=== PATIENT | male | born 1995 | race Caucasian/White ===

== ENCOUNTER 2016-10-07 08:44 | Emergency (ER) | payer OTHER ==
--- NOTE | 2016-10-07 09:26 | ED CLINICAL REPORT ---
Clinical Report - Physicians/Mid Levels [facility] [address] [place] [address] 10/07/2016 8:44 Patient: RANDY KEARNS Time Seen: 09:04; initial patient contact. Arrived- By private vehicle. Historian- patient. HISTORY OF PRESENT ILLNESS Chief Complaint: SKIN RASH. This started about 1 month ago and is still present (persistent). It is described as itchy. Not painful or burning. It has been generalized in location. No cause has been identified. No recent medication or insect bite. Similar symptoms previously: None. Recent medical care: Not recently seen/assessed. REVIEW OF SYSTEMS No fever, chills or enlarged lymph nodes. All systems otherwise negative, except as recorded above. PAST HISTORY PROBLEMS: Contusion. Laceration. Substance Abuse. Suicidal Ideation. Immunizations. SURGERIES: no known surgeries. SOCIAL HISTORY Current every day smoker. History of drug use: marijuana. No alcohol use. ADDITIONAL NOTES The nursing notes have been reviewed with agreement regarding the chief complaint, PMH and patient medications and allergies. PHYSICAL EXAM Vital Signs: 10/07/2016 09:00 BP: 161/100. HR: 86. RR: 14. O2 saturation: 100%. Temp: 98.1 F. Pain level now: 0/10. Have been reviewed. Hypertensive. Heart rate normal. Respiratory rate normal. Temperature normal. Oxygen saturation normal. Appearance: Alert. Oriented X3. No acute distress. Eyes: Conjunctivae and eyelids normal. CVS: Normal heart rate and rhythm. Heart sounds normal. Respiratory: No respiratory distress. Breath sounds normal. Skin: Rash present on the trunk. Rash present on the right forearm and hand and left forearm and hand. The rash is maculopapular. No warmth, induration, weeping, tenderness or swelling. Neuro: Oriented X 3. PROGRESS AND PROCEDURES Disposition: Discharged home in good condition. Condition: good. CLINICAL IMPRESSION Scabies Essential hypertension. INSTRUCTIONS Prescription Medications: Elimite 5% Cream: Shower and dry thoroughly, then apply cream to whole body from neck down, leave on 8 hours then shower thoroughly and launder clothes and bedclothes in hot water. Repeat in 1 week if needed. Dispense one (1) tube. One refill. Substitution is permissible. Follow-up: Screening today revealed the patient's blood pressure to be in the hypertensive range. The patient should follow up with a primary care provider for blood pressure management. Follow-up with: [facility], , , [address], , [place], [id number] Follow up in about three days. Call for an appointment. (Electronically signed by Jarad Chamorro Dr. 10/07/2016 21:35)
--- NOTE | 2016-10-07 09:26 | ED NURSING NOTES ---
Clinical Report - Nurses [facility] [place] [address] [place] [address] 10/07/2016 8:44 Patient: RANDY KEARNS TRIAGE Triage time 09:00. Acuity: LEVEL 5. Chief Complaint: (LEFT ARM PAIN). 09:01 10/07/16. 09:00 10/07/16. --09:02 John Griffiths R.N. 09:00 10/07/16. BP: 161/100. HR: 86. RR: 14. O2 saturation: 100% on room air. Temp: 98.1 F (oral). Pain level now: 0/10. --09:02 John Griffiths R.N. <<STRICKEN ENTRY-- ( Pt had a tatoo placed 2 weeks ago from a friend, now pt c/o left arm pain and redness). --09:03 John Griffiths R.N. --END STRIKE>> Correction --09:03 John Griffiths R.N. ( Pt had a tattoo placed 2 weeks ago from a friend, now pt c/o left arm pain and redness). --09:03 John Griffiths R.N. Weight: 77.1 kg stated. Height/Length: 70 inches Per Patient. BMI: 24.4. --09:00 John Griffiths R.N. Medications None. --09:01 John Griffiths R.N. Medication/allergy information source: the patient. --09:02 John Griffiths R.N. Allergies No Known Drug Allergy. --09:01 John Griffiths R.N. History Arrived by private vehicle. Historian: patient. Primary physician (NONE). 09:01 10/07/16. 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 PAST MEDICAL HX: Immunizations not up to date. SOCIAL HX: Current every day light tobacco smoker (cigarette)- less than 1/2 a pack per day. History of heavy drug use: marijuana. Recently used drugs yesterday. No alcohol use. No infectious disease exposure. ABUSE ASSESSMENT: No report of abuse. FALL RISK ASSESSMENT: Fall risk assessment completed. No fall risk identified. NUTRITIONAL RISK ASSESSMENT: The nutritional risk assessment revealed no deficiencies. FUNCTIONAL ASSESSMENT: Functional assessment: no impairments noted. LEARNING NEEDS ASSESSMENT: The learning needs assessment revealed no barriers. SKIN INTEGRITY ASSESSMENT: Skin integrity risk assessment completed. No skin integrity risk identified. --09:02 John Griffiths R.N. PROBLEMS: Contusion. Laceration. Substance Abuse. Suicidal Ideation. Immunizations. --09:02 John Griffiths R.N. ADDITIONAL SURGERIES: no known surgeries. Assessment 09:01 10/07/16. --09:02 John Griffiths R.N. Interventions 09:10/07/16. 09:10/07/16. ID and allergy band on patient. To treatment room. --09:02 John Griffiths R.N. PHYSICAL ASSESSMENT 09:04 10/07/16. GENERAL / NEURO / PSYCH: Alert. Oriented X 4. Appears in no acute distress. RESPIRATORY: Respirations not labored. SKIN: Skin is warm and dry. Crusting skin rash located on the left arm. --09:05 John Griffiths R.N. NURSING PROGRESS NOTES 09:03 10/07/16. The plan of care for this patient has been created. Head of bed elevated. Two patient identifiers checked. Call light placed in reach. Side rails up x 2. Bed placed in lowest position. Brakes of bed on. Brakes of chair on. --09:03 John Griffiths R.N. 09:04 10/07/16. Patient ready for evaluation- chart flagged and notification provided. --09:04 John Griffiths R.N. DISPOSITION / DISCHARGE 09:42 10/07/16. Condition at departure: improved. The goals identified in the patient's plan of care were met. No learning barriers present. Discharge instructions provided and reviewed with the patient. Reviewed warnings. Reviewed medication(s). Treatments reviewed. Patient verbalized understanding. Written instructions provided in [place]. The patient was discharged by the physician. He was discharged home. He left the Emergency Department ambulatory and via private vehicle. FALL RISK ASSESSMENT: Fall risk assessment completed. No fall risk identified. --09:42 John Griffiths R.N. 09:42 10/07/16. BP: 150/92. HR: 80. RR: 12. O2 saturation: 100% on room air. --09:42 John Griffiths R.N. 09:42 10/07/16. Departure time: 09:42. --09:42 John Griffiths R.N. Locked/Released at 10/07/2016 11:19 by John Griffiths R.N.
--- NOTE | 2016-10-07 09:26 | ED NURSING NOTES ---
Clinical Report - Nurses [facility] [place] [address] [place] [address] 10/07/2016 8:44 Patient: RANDY KEARNS TRIAGE Triage time 09:00. Acuity: LEVEL 5. Chief Complaint: (LEFT ARM PAIN). 09:01 10/07/16. 09:00 10/07/16. --09:02 John Griffiths R.N. 09:00 10/07/16. BP: 161/100. HR: 86. RR: 14. O2 saturation: 100% on room air. Temp: 98.1 F (oral). Pain level now: 0/10. --09:02 John Griffiths R.N. <<STRICKEN ENTRY-- ( Pt had a tatoo placed 2 weeks ago from a friend, now pt c/o left arm pain and redness). --09:03 John Griffiths R.N. --END STRIKE>> Correction --09:03 John Griffiths R.N. ( Pt had a tattoo placed 2 weeks ago from a friend, now pt c/o left arm pain and redness). --09:03 John Griffiths R.N. Weight: 77.1 kg stated. Height/Length: 70 inches Per Patient. BMI: 24.4. --09:00 John Griffiths R.N. Medications None. --09:01 John Griffiths R.N. Medication/allergy information source: the patient. --09:02 John Griffiths R.N. Allergies No Known Drug Allergy. --09:01 John Griffiths R.N. History Arrived by private vehicle. Historian: patient. Primary physician (NONE). 09:01 10/07/16. 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 PAST MEDICAL HX: Immunizations not up to date. SOCIAL HX: Current every day light tobacco smoker (cigarette)- less than 1/2 a pack per day. History of heavy drug use: marijuana. Recently used drugs yesterday. No alcohol use. No infectious disease exposure. ABUSE ASSESSMENT: No report of abuse. FALL RISK ASSESSMENT: Fall risk assessment completed. No fall risk identified. NUTRITIONAL RISK ASSESSMENT: The nutritional risk assessment revealed no deficiencies. FUNCTIONAL ASSESSMENT: Functional assessment: no impairments noted. LEARNING NEEDS ASSESSMENT: The learning needs assessment revealed no barriers. SKIN INTEGRITY ASSESSMENT: Skin integrity risk assessment completed. No skin integrity risk identified. --09:02 John Griffiths R.N. PROBLEMS: Contusion. Laceration. Substance Abuse. Suicidal Ideation. Immunizations. --09:02 John Griffiths R.N. ADDITIONAL SURGERIES: no known surgeries. Assessment 09:01 10/07/16. --09:02 John Griffiths R.N. Interventions 09:10/07/16. 09:10/07/16. ID and allergy band on patient. To treatment room. --09:02 John Griffiths R.N. PHYSICAL ASSESSMENT 09:04 10/07/16. GENERAL / NEURO / PSYCH: Alert. Oriented X 4. Appears in no acute distress. RESPIRATORY: Respirations not labored. SKIN: Skin is warm and dry. Crusting skin rash located on the left arm. --09:05 John Griffiths R.N. NURSING PROGRESS NOTES 09:03 10/07/16. The plan of care for this patient has been created. Head of bed elevated. Two patient identifiers checked. Call light placed in reach. Side rails up x 2. Bed placed in lowest position. Brakes of bed on. Brakes of chair on. --09:03 John Griffiths R.N. 09:04 10/07/16. Patient ready for evaluation- chart flagged and notification provided. --09:04 John Griffiths R.N. DISPOSITION / DISCHARGE 09:42 10/07/16. Condition at departure: improved. The goals identified in the patient's plan of care were met. No learning barriers present. Discharge instructions provided and reviewed with the patient. Reviewed warnings. Reviewed medication(s). Treatments reviewed. Patient verbalized understanding. Written instructions provided in [place]. The patient was discharged by the physician. He was discharged home. He left the Emergency Department ambulatory and via private vehicle. FALL RISK ASSESSMENT: Fall risk assessment completed. No fall risk identified. --09:42 John Griffiths R.N. 09:42 10/07/16. BP: 150/92. HR: 80. RR: 12. O2 saturation: 100% on room air. --09:42 John Griffiths R.N. 09:42 10/07/16. Departure time: 09:42. --09:42 John Griffiths R.N. Locked/Released at 10/07/2016 11:19 by John Griffiths R.N.
--- NOTE | 2016-10-07 09:26 | ED CLINICAL REPORT ---
Clinical Report - Physicians/Mid Levels [facility] [address] [place] [address] 10/07/2016 8:44 Patient: RANDY KEARNS Time Seen: 09:04; initial patient contact. Arrived- By private vehicle. Historian- patient. HISTORY OF PRESENT ILLNESS Chief Complaint: SKIN RASH. This started about 1 month ago and is still present (persistent). It is described as itchy. Not painful or burning. It has been generalized in location. No cause has been identified. No recent medication or insect bite. Similar symptoms previously: None. Recent medical care: Not recently seen/assessed. REVIEW OF SYSTEMS No fever, chills or enlarged lymph nodes. All systems otherwise negative, except as recorded above. PAST HISTORY PROBLEMS: Contusion. Laceration. Substance Abuse. Suicidal Ideation. Immunizations. SURGERIES: no known surgeries. SOCIAL HISTORY Current every day smoker. History of drug use: marijuana. No alcohol use. ADDITIONAL NOTES The nursing notes have been reviewed with agreement regarding the chief complaint, PMH and patient medications and allergies. PHYSICAL EXAM Vital Signs: 10/07/2016 09:00 BP: 161/100. HR: 86. RR: 14. O2 saturation: 100%. Temp: 98.1 F. Pain level now: 0/10. Have been reviewed. Hypertensive. Heart rate normal. Respiratory rate normal. Temperature normal. Oxygen saturation normal. Appearance: Alert. Oriented X3. No acute distress. Eyes: Conjunctivae and eyelids normal. CVS: Normal heart rate and rhythm. Heart sounds normal. Respiratory: No respiratory distress. Breath sounds normal. Skin: Rash present on the trunk. Rash present on the right forearm and hand and left forearm and hand. The rash is maculopapular. No warmth, induration, weeping, tenderness or swelling. Neuro: Oriented X 3. PROGRESS AND PROCEDURES Disposition: Discharged home in good condition. Condition: good. CLINICAL IMPRESSION Scabies Essential hypertension. INSTRUCTIONS Prescription Medications: Elimite 5% Cream: Shower and dry thoroughly, then apply cream to whole body from neck down, leave on 8 hours then shower thoroughly and launder clothes and bedclothes in hot water. Repeat in 1 week if needed. Dispense one (1) tube. One refill. Substitution is permissible. Follow-up: Screening today revealed the patient's blood pressure to be in the hypertensive range. The patient should follow up with a primary care provider for blood pressure management. Follow-up with: [facility], , , [address], , [place], [address] Follow up in about three days. Call for an appointment. (Electronically signed by Jarad Chamorro Dr. 10/07/2016 21:35)
--- NOTE | 2016-10-07 21:36 | ED MED RECONCILIATION SUMMARY ---
Patient: RANDY KEARNS Medication Reconciliation Report [facility] VisitID: [id number] [address] [place] [address] 21y, M Registration Date/Time: 10/07/2016 Weight: 77.1 kg Height/Length: 70 in. BMI: 24.4 ALLERGIES: No Known Drug Allergy The patient's Home Medications are listed below: NONE. The source(s) of the original Home Medication information: patient The following Medications were given to the patient in the Emergency Department: None. The following Medications were prescribed to the patient: Elimite 5% Cream: Shower and dry thoroughly, then apply cream to whole body from neck down, leave on 8 hours then shower thoroughly and launder clothes and bedclothes in hot water. Repeat in 1 week if needed. Dispense one (1) tube. One refill. Substitution is permissible. -- Jarad Chamorro Dr.
--- NOTE | 2016-10-07 21:36 | ED DISCHARGE INSTRUCTIONS ---
Patient: RANDY KEARNS General Instructions [facility] VisitID: [id number] [address] [place] [address] 21y, M Registration Date/Time: 10/07/2016 Scabies Essential hypertension. INSTRUCTIONS Prescription Medications: Elimite 5% Cream: Shower and dry thoroughly, then apply cream to whole body from neck down, leave on 8 hours then shower thoroughly and launder clothes and bedclothes in hot water. Repeat in 1 week if needed. Dispense one (1) tube. One refill. Substitution is permissible. Follow-up: Screening today revealed the patient's blood pressure to be in the hypertensive range. The patient should follow up with a primary care provider for blood pressure management. Follow-up with: [facility], , , [address], , [place], [address] Follow up in about three days. Call for an appointment. ADDITIONAL INFORMATION Scabies Scabies is a skin disease caused by a tiny insect that can only be seen with a microscope. Scabies usha under the skin and cause an itchy bumpy rash on the hands, feet, armpits, buttocks and groin area. Preventing Spread To Others: Scabies is highly contagious. It is easily spread by close personal contact or by sharing bed linens or clothing used by an infected person. It may take 4-6 weeks for symptoms to appear after being exposed. Everyone living in the house with an infected person, as well as sexual partners of an infected person, should be treated at the same time. After the first treatment, you will no longer be contagious and you may return to work, school or daycare. Home Care: Clothing Care Machine wash in hot water all sheets, towels, pillowcases, underwear, pajamas and any other clothing recently worn. Use the hot cycle of a dryer or use a hot iron to sterilize. Items that are difficult to wash such as coats, jackets, blankets and spreads can be sealed in a plastic trash bag for four days. (The insects after three days off the human body.) Using Medicine Use the medicine (Kwell or Elimite) exactly as prescribed. Apply it at bedtime from the chin down to your toes, covering all of your skin. Do this even in areas that don't seem infected! Avoid getting the medicine in your eyes and the sensitive areas around the vagina and tip of the penis. If it gets in a sensitive area, rinse with lots of water. Wash off the medicine 8-14 hours later. Do not leave it on the skin longer than directed and do not use it more often than directed. Otherwise, side effects may occur. A single treatment will kill the mites in the skin right away, but it may take 2-4 weeks for all of the itching and rash to go away. Itching may increase slightly right after the treatment, but you should be better by the end of the first week. Women should tell their doctor if they are nursing or think they may be before using this medicine. Itching Oral Benadryl (diphenhydramine) is an antihistamine available at drug and grocery stores. Unless a prescription antihistamine was given, Benadryl may be used to reduce itching if large areas of the skin are involved. Use lower doses during the daytime and higher doses at bedtime since the drug may make you sleepy. [NOTE: Do not use Benadryl if you have glaucoma or if you are a man with trouble urinating due to an enlarged prostate.] Claritin (loratidine) is an antihistamine that causes less drowsiness and is a good alternative for daytime use. For severe itch attacks, apply an ice pack (ice cubes in a plastic bag, wrapped in a towel) or use Lanacaine, Lanacort or Solarcaine (or other medicines containing benzocaine, sold without a prescription). Follow Up with your doctor or as directed if your symptoms do not improve after 1 week. Get Prompt Medical Attention if any of the following occur: Increasing redness of the skin Yellow-brown crusts or drainage from the sores Fever of 100.4F (38C) or higher, or as directed by your healthcare provider High Blood Pressure -- To Be Confirmed [No Tx] Your blood pressure was higher today than normal. Sometimes anxiety or pain can cause a temporary rise in blood pressure that later returns to normal. If your blood pressure is high on one measurement, this does not mean that you have hypertension (a chronic illness). However, you must have your blood pressure measured again within the next few days to find out if its still high. A normal blood pressure is 120/80 or less. The first (top) number is the "systolic" pressure. The second (bottom) number is the "diastolic" pressure. Hypertension exists when either the top number is 140 or higher, OR the bottom number is 90 or higher on repeated measurements. Blood pressure in the range of 120-140 (systolic) or 80-89 (diastolic) is considered "pre-hypertension". This means your are at risk for getting hypertension. You should have regular blood pressure checks to be sure your blood pressure is not rising. Home Care: Measure your blood pressure on 3 different days and write down the results. This can be done at your doctor's office or this facility. Some pharmacies and grocery stores offer automated blood pressure machines for your use. Follow Up: If your blood pressure is "high" (over 120/80) on 2 out of 3 days, you will need to follow up with your doctor for further evaluation and treatment. DO NOT PUT THIS OFF! Untreated high blood pressure increases the risk for heart attack, also known as acute myocardial infarction, or AMI, and stroke. It is a treatable condition. Get Prompt Medical Attention if any of the following occur: Chest pain or shortness of breath Severe headache Throbbing or rushing sound in the ears Nosebleed Sudden severe abdominal pain Extreme drowsiness, confusion or fainting Dizziness or vertigo (dizziness with spinning sensation) Weakness of an arm or leg or one side of the face Difficulty with speech or vision Permethrin Topical cream What is this medicine? PERMETHRIN (per METH rin) skin cream is used to treat scabies. How should I use this medicine? This medicine is for external use only. Do not take by mouth. Follow the directions on the prescription label. A bath or shower is NOT recommended before applying this medicine. Thoroughly rub the cream into all skin surfaces, from your head to the soles of your feet. It is important to apply it everywhere on your body, not just where the rash is. Apply the cream between fingers and toe creases, in the folds of the wrist and waistline, in the cleft of the buttocks, on the genitals, and in the belly button. Use a toothpick to apply the cream beneath your fingernails and toenails. Nails should be cut short. If you have little or no hair, or you are applying the cream to an or young child, make sure you rub the cream into the neck, scalp, hairline, temples, and forehead. Leave it on for 8 to 14 hours, then remove it by bathing and shampooing. If you are applying this medicine to another person, wear plastic or disposable gloves to protect yourself from infestation. Do not get this medicine in your eyes. If you do, rinse out with plenty of cool tap water. Talk to your helper coordinator regarding the use of this medicine in children. While this drug may be prescribed for children as young as 2 months of age for selected conditions, precautions do apply. What side effects may I notice from receiving this medicine? Side effects that usually do not require medical attention (report to your doctor or health animal caregiver if they continue or are bothersome): itching numbness rash redness or mild swelling of the skin stinging or burning tingling sensation What may interact with this medicine? Interactions are not expected. Do not use any other skin products on the affected area without telling your doctor or health animal caregiver. What if I miss a dose? This does not apply. Where should I keep my medicine? Keep out of the reach of children. Store at room temperature away from heat and direct light. Do not refrigerate or freeze. Throw away any unused medicine after the expiration date. What should I tell my health care provider before I take this medicine? They need to know if you have any of these conditions: asthma an unusual or allergic reaction to permethrin, veterinary or household insecticides, other medicines, chrysanthemums, foods, dyes, or preservatives or trying to get breast-feeding What should I watch for while using this medicine? It is not unusual for itching and rash to continue for as long as 2 to 4 weeks after treatment. These symptoms may be a temporary reaction to the remains of the mites. This does not mean this cream did not work or that it needs to be reapplied. If you feel that the itching and rash is intense or if it continues beyond 4 weeks, talk to your doctor or health animal caregiver right away. Scabies is spread by direct skin contact with an infected person. Family members and sexual partners may require treatment with this medicine. You should discuss this with your doctor or health animal caregiver. Using a normal washing cycle, you should wash all clothing, towels and bed linen that has touched your skin. You do not need to rewash clean clothing that has not yet been worn. [place], furniture, rugs, floors, and cordero do not need to be cleaned in any special manner. You have been given the following additional information: Scabies Hypertension, To Be Confirmed Permethrin Topical cream (Electronically signed by Jarad Chamorro Dr. 10/07/2016 21:35)
--- NOTE | 2016-10-07 21:36 | ED MED RECONCILIATION SUMMARY ---
Patient: RANDY KEARNS Medication Reconciliation Report [facility] VisitID: [id number] [address] [place] [address] 21y, M Registration Date/Time: 10/07/2016 Weight: 77.1 kg Height/Length: 70 in. BMI: 24.4 ALLERGIES: No Known Drug Allergy The patient's Home Medications are listed below: NONE. The source(s) of the original Home Medication information: patient The following Medications were given to the patient in the Emergency Department: None. The following Medications were prescribed to the patient: Elimite 5% Cream: Shower and dry thoroughly, then apply cream to whole body from neck down, leave on 8 hours then shower thoroughly and launder clothes and bedclothes in hot water. Repeat in 1 week if needed. Dispense one (1) tube. One refill. Substitution is permissible. -- Jarad Chamorro Dr.
--- NOTE | 2016-10-07 21:36 | ED DISCHARGE INSTRUCTIONS ---
Patient: RANDY KEARNS General Instructions [facility] VisitID: [id number] [address] [place] [address] 21y, M Registration Date/Time: 10/07/2016 Scabies Essential hypertension. INSTRUCTIONS Prescription Medications: Elimite 5% Cream: Shower and dry thoroughly, then apply cream to whole body from neck down, leave on 8 hours then shower thoroughly and launder clothes and bedclothes in hot water. Repeat in 1 week if needed. Dispense one (1) tube. One refill. Substitution is permissible. Follow-up: Screening today revealed the patient's blood pressure to be in the hypertensive range. The patient should follow up with a primary care provider for blood pressure management. Follow-up with: [facility], , , [address], , [place], [id number] Follow up in about three days. Call for an appointment. ADDITIONAL INFORMATION Scabies Scabies is a skin disease caused by a tiny insect that can only be seen with a microscope. Scabies usha under the skin and cause an itchy bumpy rash on the hands, feet, armpits, buttocks and groin area. Preventing Spread To Others: Scabies is highly contagious. It is easily spread by close personal contact or by sharing bed linens or clothing used by an infected person. It may take 4-6 weeks for symptoms to appear after being exposed. Everyone living in the house with an infected person, as well as sexual partners of an infected person, should be treated at the same time. After the first treatment, you will no longer be contagious and you may return to work, school or daycare. Home Care: Clothing Care Machine wash in hot water all sheets, towels, pillowcases, underwear, pajamas and any other clothing recently worn. Use the hot cycle of a dryer or use a hot iron to sterilize. Items that are difficult to wash such as coats, jackets, blankets and spreads can be sealed in a plastic trash bag for four days. (The insects after three days off the human body.) Using Medicine Use the medicine (Kwell or Elimite) exactly as prescribed. Apply it at bedtime from the chin down to your toes, covering all of your skin. Do this even in areas that don't seem infected! Avoid getting the medicine in your eyes and the sensitive areas around the vagina and tip of the penis. If it gets in a sensitive area, rinse with lots of water. Wash off the medicine 8-14 hours later. Do not leave it on the skin longer than directed and do not use it more often than directed. Otherwise, side effects may occur. A single treatment will kill the mites in the skin right away, but it may take 2-4 weeks for all of the itching and rash to go away. Itching may increase slightly right after the treatment, but you should be better by the end of the first week. Women should tell their doctor if they are nursing or think they may be before using this medicine. Itching Oral Benadryl (diphenhydramine) is an antihistamine available at drug and grocery stores. Unless a prescription antihistamine was given, Benadryl may be used to reduce itching if large areas of the skin are involved. Use lower doses during the daytime and higher doses at bedtime since the drug may make you sleepy. [NOTE: Do not use Benadryl if you have glaucoma or if you are a man with trouble urinating due to an enlarged prostate.] Claritin (loratidine) is an antihistamine that causes less drowsiness and is a good alternative for daytime use. For severe itch attacks, apply an ice pack (ice cubes in a plastic bag, wrapped in a towel) or use Lanacaine, Lanacort or Solarcaine (or other medicines containing benzocaine, sold without a prescription). Follow Up with your doctor or as directed if your symptoms do not improve after 1 week. Get Prompt Medical Attention if any of the following occur: Increasing redness of the skin Yellow-brown crusts or drainage from the sores Fever of 100.4F (38C) or higher, or as directed by your healthcare provider High Blood Pressure -- To Be Confirmed [No Tx] Your blood pressure was higher today than normal. Sometimes anxiety or pain can cause a temporary rise in blood pressure that later returns to normal. If your blood pressure is high on one measurement, this does not mean that you have hypertension (a chronic illness). However, you must have your blood pressure measured again within the next few days to find out if its still high. A normal blood pressure is 120/80 or less. The first (top) number is the "systolic" pressure. The second (bottom) number is the "diastolic" pressure. Hypertension exists when either the top number is 140 or higher, OR the bottom number is 90 or higher on repeated measurements. Blood pressure in the range of 120-140 (systolic) or 80-89 (diastolic) is considered "pre-hypertension". This means your are at risk for getting hypertension. You should have regular blood pressure checks to be sure your blood pressure is not rising. Home Care: Measure your blood pressure on 3 different days and write down the results. This can be done at your doctor's office or this facility. Some pharmacies and grocery stores offer automated blood pressure machines for your use. Follow Up: If your blood pressure is "high" (over 120/80) on 2 out of 3 days, you will need to follow up with your doctor for further evaluation and treatment. DO NOT PUT THIS OFF! Untreated high blood pressure increases the risk for heart attack, also known as acute myocardial infarction, or AMI, and stroke. It is a treatable condition. Get Prompt Medical Attention if any of the following occur: Chest pain or shortness of breath Severe headache Throbbing or rushing sound in the ears Nosebleed Sudden severe abdominal pain Extreme drowsiness, confusion or fainting Dizziness or vertigo (dizziness with spinning sensation) Weakness of an arm or leg or one side of the face Difficulty with speech or vision Permethrin Topical cream What is this medicine? PERMETHRIN (per METH rin) skin cream is used to treat scabies. How should I use this medicine? This medicine is for external use only. Do not take by mouth. Follow the directions on the prescription label. A bath or shower is NOT recommended before applying this medicine. Thoroughly rub the cream into all skin surfaces, from your head to the soles of your feet. It is important to apply it everywhere on your body, not just where the rash is. Apply the cream between fingers and toe creases, in the folds of the wrist and waistline, in the cleft of the buttocks, on the genitals, and in the belly button. Use a toothpick to apply the cream beneath your fingernails and toenails. Nails should be cut short. If you have little or no hair, or you are applying the cream to an or young child, make sure you rub the cream into the neck, scalp, hairline, temples, and forehead. Leave it on for 8 to 14 hours, then remove it by bathing and shampooing. If you are applying this medicine to another person, wear plastic or disposable gloves to protect yourself from infestation. Do not get this medicine in your eyes. If you do, rinse out with plenty of cool tap water. Talk to your call center manager regarding the use of this medicine in children. While this drug may be prescribed for children as young as 2 months of age for selected conditions, precautions do apply. What side effects may I notice from receiving this medicine? Side effects that usually do not require medical attention (report to your doctor or health patient care assistant if they continue or are bothersome): itching numbness rash redness or mild swelling of the skin stinging or burning tingling sensation What may interact with this medicine? Interactions are not expected. Do not use any other skin products on the affected area without telling your doctor or health patient care assistant. What if I miss a dose? This does not apply. Where should I keep my medicine? Keep out of the reach of children. Store at room temperature away from heat and direct light. Do not refrigerate or freeze. Throw away any unused medicine after the expiration date. What should I tell my health care provider before I take this medicine? They need to know if you have any of these conditions: asthma an unusual or allergic reaction to permethrin, veterinary or household insecticides, other medicines, chrysanthemums, foods, dyes, or preservatives or trying to get breast-feeding What should I watch for while using this medicine? It is not unusual for itching and rash to continue for as long as 2 to 4 weeks after treatment. These symptoms may be a temporary reaction to the remains of the mites. This does not mean this cream did not work or that it needs to be reapplied. If you feel that the itching and rash is intense or if it continues beyond 4 weeks, talk to your doctor or health patient care assistant right away. Scabies is spread by direct skin contact with an infected person. Family members and sexual partners may require treatment with this medicine. You should discuss this with your doctor or health patient care assistant. Using a normal washing cycle, you should wash all clothing, towels and bed linen that has touched your skin. You do not need to rewash clean clothing that has not yet been worn. [place], furniture, rugs, floors, and cordero do not need to be cleaned in any special manner. You have been given the following additional information: Scabies Hypertension, To Be Confirmed Permethrin Topical cream (Electronically signed by Jarad Chamorro Dr. 10/07/2016 21:35)
--- NOTE | 2016-10-07 21:36 | ED MAR SUMMARY ---
..... Medication Administration Record [facility] [address], [place] [id number] Patient: RANDY KEARNS Visit ID: [id number] 21y, M Weight: 77.1 kg Height/Length: 70 in BMI: 24.4 ALLERGIES: No Known Drug Allergy
--- NOTE | 2016-10-07 21:36 | ED MAR SUMMARY ---
..... Medication Administration Record [facility] [address] [place], [place] [id number] Patient: RANDY KEARNS Visit ID: [id number] 21y, M Weight: 77.1 kg Height/Length: 70 in BMI: 24.4 ALLERGIES: No Known Drug Allergy
== END 2016-10-07 09:42 | disposition home or self-care (01) ==
LOC: ED SRH 08:44
DX: B86 Scabies (principal); I10 Essential (primary) hypertension; F17.200 Nicotine dependence, unspecified, uncomplicated